=== PATIENT | female | born 1950 | race Caucasian/White ===

== ENCOUNTER 2021-06-27 12:21 | Day surgery (SDC) | payer MEDICARE, BC ==
[2021-06-23 12:25] LABS: BASOPHILS % (AUTO) 0.6 % (0-1); EOSINOPHILS # (AUTO) 0.3 X10'3 (0-0.9); EOSINOPHILS % (AUTO) 3.5 % (0-6); HEMATOCRIT 42.6 % (35.0-45.0); HEMOGLOBIN 14.2 g/dl (12.0-16.0); LYMPHOCYTES # (AUTO) 1.4 X10'3 (1.1-4.8); LYMPHOCYTES % (AUTO) 19.6 % (21-51); MEAN CORPUSCULAR HEMOGLOBIN 28.4 PG (27.0-31.0); MEAN CORPUSCULAR HGB CONC 33.4 g/dL (33.0-36.5); MEAN CORPUSCULAR VOLUME 85.1 FL (78-98); MEAN PLATELET VOLUME 7.8 FL (7.4-10.4); MONOCYTES # (AUTO) 0.7 X10'3 (0-0.9); MONOCYTES % (AUTO) 9.7 % (2-12); NEUTROPHILS # (AUTO) 4.8 X10'3 (1.8-7.7); NEUTROPHILS % (AUTO) 66.6 % (42-75); PLATELET COUNT 170 X10'3 (140-440); RED CELL DISTRIBUTION WIDTH 14.2 % (11.5-14.5); WHITE BLOOD COUNT 7.3 X10'3 (4.5-11.0)
[2021-06-23 12:32] LABS: ALBUMIN 3.9 G/DL (3.4-5.0); ANION GAP 9 (8-16); BLOOD UREA NITROGEN 14 MG/DL (7-18); BUN/CREATININE RATIO 22.2 (6.6-38.0); CALCIUM 9.1 MG/DL (8.5-10.1); CHLORIDE 105 MMOL/L (99-107); CREATININE 0.63 MG/DL (0.40-0.90); GLUCOSE 233 MG/DL (70-104); POTASSIUM 4.4 MMOL/L (3.5-5.1); SODIUM 140 MMOL/L (135-145); TOTAL CARBON DIOXIDE 26.5 MMOL/L (24-32); eGFR > 90 ML/MIN
[2021-06-23 12:36] LABS: APTT 25 SECONDS (22-32)
[2021-06-27] VITALS (11 sets, daily range): BP systolic 107–149; BP diastolic 41–78
[~2021-06-27] VITALS: Ht 182.9 cm; Wt 81.6 kg
[~2021-06-27 12:21] MED LIST: ONDA8TAB9 PO
[2021-06-27] MEDS ORDERED: diphenhydrAMINE 25mg capsule PO PRN (12:35)
[2021-06-27] MEDS ORDERED: normal saline 1,000 ML IV SCH (12:35)
[2021-06-27] MEDS ORDERED: LORazepam 0.5 MG tablet PO PRN (12:35)
[2021-06-27] MEDS ORDERED: LISI20TA28 PO (12:46)
[2021-06-27] MEDS ORDERED: METO-395 PO (12:46)
[2021-06-27] MEDS ORDERED: SITA25TA3 PO (12:46)
[2021-06-27] MEDS ORDERED: HYDR25TA4 PO (12:46)
[2021-06-27] MEDS ORDERED: METF-900 PO (12:46)
[2021-06-27] MEDS ORDERED: SIMV-45 PO (12:46)
[2021-06-27] MEDS ORDERED: nitroGLYCERIN-Tridil 50MG/D5W 250 ML IV ONE (12:47)
[2021-06-27] MEDS ORDERED: iohexol 350MG/ML 100ml bottle IV ONE (12:47)
[2021-06-27] MEDS ORDERED: verapamil 2.5 mg/ml inj IV ONE (12:47)
[2021-06-27] MEDS ORDERED: heparin 1,000unit/ml 10ml vial 10 ML ONE (12:47)
[2021-06-27] MEDS ORDERED: LIDOcaine 1% (10mg/ml)w/preservative inj. 20ml MDV ONE (12:47)
--- NOTE | 2021-06-27 13:00 | NUR ---
To laboratory manager, report to [facility]
[2021-06-27] MEDS ORDERED: midazolam 1 mg/ML 2ml injection ONE (13:10)
[2021-06-27] MEDS ORDERED: fentaNYL/PF 50MCG/1 ML 2ML syringe ONE (13:10)
--- NOTE | 2021-06-27 13:50 | NUR ---
Pt return from [employer] [facility] assistant, right radial vasc band in place. Received report from [facility]. VSS, pt drowsy, denies pain.
[2021-06-27] MEDS ORDERED: HYDROcodone/acetaminophen 10/325mg tab PO PRN (14:10)
[2021-06-27] MEDS ORDERED: HYDROcodone/acetaminophen 5mg/325mg tablet PO PRN (14:10)
--- NOTE | 2021-06-27 14:30 | NUR ---
Pt sitting up in bed eating sandwich and drinking diet soda without problems. at bedside.
--- NOTE | 2021-06-27 16:30 | NUR ---
Vasc band removed, right radial site cleaned and dressed. No bleeding, bruising or hematoma noted.
--- NOTE | 2021-06-27 16:50 | NUR ---
Written and verbal DC instructions given to pt and , verbalize understanding. Pt amb to rest room, gait steady, void in toilet. PIV DC cath intact. VSS, Denies pain. assisted pt to get dressed, steady on feet.
--- NOTE | 2021-06-27 17:10 | NUR ---
Dc to home with , transferred to private car via WC, pt able to transfer self to car.
== END 2021-06-27 17:10 | disposition home or self-care (01) ==
LOC: SSTAY O 12:21
PROVIDERS: ATTEND Internal Medicine Interventional Cardiology
DX: R94.39 Abnormal result of other cardiovascular function study (principal); I25.10 Atherosclerotic heart disease of native coronary artery without angina pectoris; I11.9 Hypertensive heart disease without heart failure; E11.9 Type 2 diabetes mellitus without complications; I44.7 Left bundle-branch block, unspecified; Z79.01 Long term (current) use of anticoagulants; Z79.899 Other long term (current) drug therapy; Z82.49 Family history of ischemic heart disease and other diseases of the circulatory system
CPT/HCPCS: 36415; 80048; 85025; 85610; 85730; 93005; 93458; 99152; C1769; C1894; J1644; J2250; J3010; J3490; J7030; Q0163; Q9967; A4620; A5120; A6258